=== PATIENT | female | born 1945 | race Caucasian/White ===

== ENCOUNTER 2018-08-28 07:07 | Day surgery (SDC) | payer MEDICARE ==
--- NOTE | 2018-08-20 16:01 | HP ---
CC: Dr. Yuniel Chavez of [facility] * ADMISSION HISTORY AND PHYSICAL: DATE OF ADMISSION: 08/28/18 ATTENDING SURGEON: Dr. Viviana Sher * (CHRISTOPHER Bansal, dictating). CHIEF COMPLAINT: Left breast nodule. HISTORY OF PRESENT ILLNESS: This is a 73-year-old female who underwent prior left breast biopsy in December 2016 which was apparently benign on pathology. A biopsy clip was left in place. She underwent her routine annual screening mammography on 06/19/18 which noted the nodule in the upper medial quadrant of the left breast measuring up to 1.2 cm. This was in the region of the prior biopsy and subsequent ultrasound done on 07/06/18 confirmed the presence of a hypoechoic nodule at the 10 o'clock position of left breast 4 cm from the nipple with prior biopsy clip present. This measured 1.3 x 0.8 x 1.2 cm ( increased from 0.8 x 0.8 x 1 cm in December 2016). The patient denies any changes to either breast including skin or nipple changes, lumps or nipple discharge. She was seen in our office by Dr. Sher on 07/09/18 at which time exam showed no skin or nipple changes. No discrete masses in the right breast. In the left breast there was some noddy tissue in the upper inner quadrant but no discrete lump. There was no cervical, supraclavicular, or axillary lymphadenopathy by palpation. The patient underwent ultrasound guided core biopsy on 07/23/18, pathology showing hypercellular stroma with no malignant cells. The patient's family history is significant for a paternal aunt who had breast cancer in her 50s and a paternal cousin diagnosed in her 30s. There is no known family history of ovarian cancer. Dr. Sher has discussed with her the indications for surgery, the risks, benefits, and alternatives and she would like to proceed as recommended with excision of left breast nodule ( following needle localization). PAST MEDICAL HISTORY: No significant active or past medical problems. She does have a history of anxiety and depression as well as cervical cancer treated by conization approximately 25 years ago with normal Pap smears subsequently. PAST SURGICAL HISTORY: Nothing in addition to above. CURRENT MEDICATIONS: 1. She takes her calcium magnesium supplement most of the days. 2. PreserVision AREDS 2 tablets once daily. 3. Currently uses an eye drop (Edith) for dry eyes. DRUG ALLERGIES: FENTANYL (vomiting and shaking). FAMILY HISTORY: As noted above otherwise negative for anesthesia problems, bleeding or clotting disorders. SOCIAL HISTORY: The patient is single, lives alone. She works at the [employer]. She is a nonsmoker. She drinks less than 1 drink per day average. She denies any other recreational drug use. REVIEW OF SYSTEMS: General: No other recent constitutional symptoms or acute illnesses. HEENT: She has some periodontal disease for which she is seeing Dr. Valle. Cardiovascular: She had recently had some chest pressure or palpations that she attributed to stress or caffeine. These have responded to reduced caffeine intake. Respiratory: No shortness of breath or chronic cough. GI: No problems reported. Last colonoscopy was approximately 3 to 5 years ago and reportedly normal. She is unsure about followup recommendations. She has had no concerning interval symptoms. : No problems reported. 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 Endocrine: No diabetes or thyroid dysfunction. PHYSICAL EXAMINATION GENERAL: A well-nourished, well-developed obese female, in no acute distress. She appears younger than her stated age of 73. VITAL SIGNS: Height 62 inches, weight 179 pounds, temperature 98.2, blood pressure 132/74, pulse 78, respirations 18. HEENT: Pupils are equal, round, reactive. EOMs intact. No conjunctival pallor. Oropharynx: Teeth in good repair. No intraoral lesions. NECK: No lymphadenopathy, thyromegaly, or masses. LUNGS: Clear to auscultation. No rales or wheezes. BREAST: Not reexamined today. See above. HEART: Regular rate and rhythm. No murmur noted. ABDOMEN: Soft, nontender to palpation. No palpable masses or organomegaly. GENITALIA: Not done. RECTAL: Not done. BACK: No spinous process or CVA tenderness. EXTREMITIES: No edema. NEUROLOGICAL: Grossly intact. SKIN: Warm and dry. No suspicious rashes or lesions. IMPRESSION: Left breast nodule. PLAN: Excision left breast nodule (following needle localization). CHRISTOPHER BANSAL [id number]/[facility] #: [id number] [facility]PITALMeek
[~2018-08-28 07:07] MED LIST: Buffered Lidocaine 1% SYRIN* 1 ML/SYRINGE INTRADERM ONE; Dexamethasone IV* 4 MG/ML 1 ML (4 MG) IV SLOW PU ONE; Famotidine TAB* 20 MG PO ONE; Lactated Ringers 1000 ML Bag* 1,000 ML IV SCH
[2018-08-28] MEDS ORDERED: Dexamethasone IV* 4 MG/ML 1 ML (4 MG) ONE (07:43)
[2018-08-28] MEDS ORDERED: Lidocaine 2.5%/Prilocain 2.5%* 5 GM TUBE ONE (07:43)
[2018-08-28] MEDS ORDERED: Buffered Lidocaine 1% SYRIN* 1 ML/SYRINGE INTRADERM ONE (07:43)
[2018-08-28] MEDS ORDERED: ceFAZolin 2 GM in NS PREMIX(*) 2 GM/100 ML BAG IVPB ONE (07:43)
[2018-08-28] MEDS ORDERED: Famotidine TAB* 20 MG ONE (07:43)
[2018-08-28] MEDS ORDERED: Lidocaine 1% INJ* 10 MG/ML 30 ML SDV ONE (11:01)
[2018-08-28] MEDS ORDERED: Bupivacaine 0.5%* 50 ML VIAL ONE (11:01)
[2018-08-28] MEDS ORDERED: Bupivacaine 0.5% W/EPI SDV* 30 ML VIAL ONE (11:01)
[2018-08-28] MEDS ORDERED: fentaNYL* 50 MCG/ML 2 ML VIAL (100 MCG VIAL) ONE (11:26)
[2018-08-28] MEDS ORDERED: Propofol* 500 MG/50 ML BTL ONE (11:27)
[2018-08-28] MEDS ORDERED: Midazolam* 1 MG/ML 2 ML VIAL (2 MG) ONE (11:27)
[2018-08-28] MEDS ORDERED: oxyCODONE/Acetamin 5/325 MG* TAB PO PRN (12:46)
[2018-08-28] MEDS ORDERED: Ibuprofen TAB* 600 MG PO PRN (12:46)
[2018-08-28] MEDS ORDERED: Acetaminophen TAB* 325 MG PO PRN (12:46)
[2018-08-28] MEDS ORDERED: fentaNYL* 50 MCG/ML 2 ML VIAL (100 MCG VIAL) IV PRN (12:46)
[2018-08-28] MEDS ORDERED: DiMENhydriNATE IV* 50 MG/ML VIAL IV PUSH PRN (12:46)
[2018-08-28] MEDS ORDERED: Naloxone* 0.4 MG/ML 1 ML VIAL IV PRN (12:46)
[2018-08-28] MEDS ORDERED: Ondansetron INJ* 2 MG/ML VIAL IV PRN (12:46)
--- NOTE | 2018-08-28 13:14 | BRIEFOPN ---
Brief Operative Note - Surgery Procedures: 08/28/18 Op Note Pre-op dx: Left breast mammographic abnormality Post-op dx: same Procedure: needle localization excision of left breast mammographic abnormality. Surgeon: Christos Asst: none Anesth: local-MAC EBL: 10 cc Complications: none SCDs on during surgery Abx: given pre-op Pt. tolerated procedure well and was transferred to in a stable condition. CLFoster
[2018-08-28] MEDS ORDERED: HYDROcodone/ACETAMIN 5-325 MG* 1 TAB PO PRN ×2 (13:15)
--- NOTE | 2018-08-28 13:44 | OP ---
CC: [facility]; Dr. Yuniel Chavez OPERATIVE REPORT: DATE OF OPERATION: 08/28/18 DATE OF : 41 SURGEON: Viviana Sher MD. PUBLICATIONS PRODUCTION SUPERVISOR: There was no medical assistant instructor for this case. PRE-OP DIAGNOSIS: Left breast mammographic abnormality. POST-OP DIAGNOSIS: Left breast mammographic abnormality. OPERATIVE PROCEDURE: Needle localization excision of left breast mammographic abnormality. INDICATIONS: Ms. Vasquez is a 73-year-old woman has undergone a biopsy of an abnormality in the breast in the recent past and it was felt to be discordant, though benign. So plans were made for surgical intervention. DESCRIPTION OF PROCEDURE: On the morning of surgery, she underwent needle localization without diffi culty. She was then brought to the operating room, placed on the OR table in supine position and giv en IV sedation. The left breast was prepped and draped in the usual sterile fashion taking care not to dislodge the localizing wire. After infiltrating with local anesthetic, a curvilinear incision en compassing the wire and the previous biopsy site was made. Subcutaneous tissue was then divided with electrocautery to excise the mass of tissue from around the wire. The specimen was marked in the us ual fashion and handed off. Hemostasis was assured with electrocautery and once this appeared adequa te, the wound was irrigated with saline copiously. Clips were placed in the cavity to archana its confi alonzo and then additional local was instilled into the wound. Closure was accomplished with 3-0 Vicryl in the subcutaneous layer and the skin was closed with 4-0 Prolene in a subcuticular fashion. Steri -Strips and a dry sterile dressing were applied. All sponge and instrument counts were correct. The report came back from Radiology that the specimen contains the abnormality and so the procedure was concluded. The patient tolerated the procedure well and was transferred to Recovery in a stable [facility]. [id number]/[facility] #: [id number]
[2018-08-28 15:20] VITALS: BP 155/91
== END 2018-08-28 14:30 | disposition home or self-care (01) ==
LOC: OR 07:07
PROVIDERS: ATTEND Surgery
DX: D24.2 Benign neoplasm of left breast (principal); F41.9 Anxiety disorder, unspecified; F32.9 Major depressive disorder, single episode, unspecified; E11.9 Type 2 diabetes mellitus without complications; I10 Essential (primary) hypertension; Z85.41 Personal history of malignant neoplasm of cervix uteri
CPT/HCPCS: 77061; 88307; A9270-GY; G0279; J0690; J1100; J2250; J2704; J3010; J3490

== ENCOUNTER 2021-01-29 13:35 | Inpatient (IN) ==
[2021-01-29] MEDS ORDERED: Ondansetron 4 mg VIAL 2 MG/ML 2 ml VIAL IV ONE ×2 (14:29→18:13)
[2021-01-29] MEDS ORDERED: HYDROcodone/ACETAMIN 5/325 mg TAB PO ONE (15:21)
[2021-01-29] MEDS ORDERED: HYDROmorphone 0.5 MG/0.5 ML SYRINGE IV ONE (17:48)
[2021-01-29] MEDS ORDERED: HYDROmorphone 1 MG/1 ML SYRINGE IV ONE (17:49)
[2021-01-29] MEDS ORDERED: ceFAZolin 2 GM in NS PREMIX 2 GM/100 ML BAG IVPB ONE (19:15)
[2021-01-29] MEDS ORDERED: Tetan/Diph/Pertus SYR(Tdap) 0.5 ML SYR(BOOSTRIX) use SYR contains LATEX IM ONE (19:15)
[2021-01-29 19:37] LABS: ABS Lymphocytes 1.4 10^3/ul (1.0-4.8); ABS Monocytes 0.8 10^3/ul (0-0.8); ABS Neutrophils 12.5 10^3/ul (1.5-7.7); Eosinophil % 0.1 %; Hematocrit 41 % (35-47); Hemoglobin 13.7 g/dL (12.0-16.0); Lymphocyte % 9.2 %; Mean Corpuscular HGB Conc 34 g/dL (31-36); Mean Corpuscular Hemoglobin 31 pg (27-31); Mean Corpuscular Volume 91 fL (80-97); Mean Platelet Volume 9.4 fL (7.4-10.4); Platelet Count 260 10^3/uL (150-450); Red Blood Count 4.46 10^6 /uL (3.70-4.87); Red Cell Distribution Width 13 % (10-15); White Blood Count 14.7 10^3/uL (3.5-10.8)
[2021-01-29 19:38] LABS: Activated Partial Thrombo Time 27.4 seconds (26.0-38.0); INR 1.12 (0.86-1.15)
[2021-01-29 19:42] LABS: Rapid COVID-19 Molecular Undetected (Undetected)
[2021-01-29 19:43] LABS: Albumin/Globulin Ratio 1.5 (1-3); Calcium 8.9 mg/dL (8.6-10.3); Globulin 2.7 g/dL (2-4); Total Bilirubin 0.4 mg/dL (0.2-1.0); Total Protein 6.7 g/dL (6.4-8.9)
[2021-01-29 20:59] LABS: Rapid COVID-19 Molecular Undetected (Undetected)
[2021-01-29] MEDS ORDERED: Ondansetron 4 mg VIAL 2 MG/ML 2 ml VIAL IV PRN (21:06)
[2021-01-29] MEDS ORDERED: NS 0.9% 1000 ml BAG 1,000 ML IV SCH (21:15)
[2021-01-29] MEDS ORDERED: ROPIVACAINE 5 MG/ML 30 ML BTL (0.5%) ONE (22:35)
[2021-01-29] MEDS ORDERED: Lidocaine 1% MPF 5 ML VIAL ONE (22:35)
[2021-01-29] MEDS ORDERED: Vancomycin 1,000 MG VIAL ONE (22:49)
[2021-01-29] MEDS ORDERED: fentaNYL 100 mcg/2 ml 50 MCG/ML VIAL ONE (22:50)
[2021-01-29] MEDS ORDERED: Rocuronium 50 mg VIAL 10 mg/ml 5 ml VIAL (50 mg) ONE ×2 (22:50→22:51)
[2021-01-29] MEDS ORDERED: Midazolam 2 mg/2 ml VIAL 1 mg/ml 2 ml VIAL (2 mg) ONE (22:51)
[2021-01-29] MEDS ORDERED: Lidocaine 2% PF 5 ML VIAL ONE (22:52)
[2021-01-29] MEDS ORDERED: Dexamethasone IV 4 MG/ML VIAL 1 ml VIAL ONE (22:52)
[2021-01-29] MEDS ORDERED: Propofol 10 MG/ML 20 ML BTL ONE (22:52)
[2021-01-30] MEDS ORDERED: Phenylephrine IV 10 MG/ML 1 ml VIAL ONE (00:16)
[2021-01-30] MEDS ORDERED: ceFAZolin VIAL VIAL ONE (00:25)
[2021-01-30] MEDS ORDERED: Glycopyrrolate IV 0.2 MG/ML 1 ML VIAL ONE (01:21)
[2021-01-30] MEDS ORDERED: HYDROmorphone 1 MG/1 ML SYRINGE IV PRN (02:15)
[2021-01-30] MEDS ORDERED: Ondansetron 4 mg VIAL 2 MG/ML 2 ml VIAL IV PRN (02:15)
[2021-01-30] MEDS ORDERED: DiMENhydriNATE IV 50 mg/ml 1 ml VIAL IV PUSH PRN (02:15)
[2021-01-30] MEDS ORDERED: Acetaminophen IV 1 GM/100ML 100 ML IV PRN (02:15)
[2021-01-30] MEDS ORDERED: diPHENhydraMINE IV 50 MG/ML 1 ml VIAL (BENADRYL) IV PRN (02:15)
[2021-01-30] MEDS ORDERED: HYDROcodone/ACETAMIN 5/325 mg TAB PO PRN (02:15)
[2021-01-30] MEDS ORDERED: Naloxone 0.4 mg VIAL 0.4 mg/ml 1 ml VIAL IV PRN (02:15)
[2021-01-30] MEDS ORDERED: Ondansetron 4 mg VIAL 2 MG/ML 2 ml VIAL ONE (02:27)
[2021-01-30] MEDS ORDERED: ceFAZolin VIAL 2 GM in NS 0.9% 100 ml BAG 100 ML IVPB SCH (04:00)
[2021-01-30] MEDS: ceFAZolin 2 GM in NS PREMIX 2 GM/100 ML BAG IVPB SCH ×3 (04:50→20:17)
[2021-01-30 05:14] LABS: ABS Lymphocytes 0.5 10^3/ul (1.0-4.8); ABS Monocytes 0.6 10^3/ul (0-0.8); ABS Neutrophils 10.1 10^3/ul (1.5-7.7); Hematocrit 35 % (35-47); Hemoglobin 11.8 g/dL (12.0-16.0); Lymphocyte % 4.7 %; Mean Corpuscular HGB Conc 34 g/dL (31-36); Mean Corpuscular Hemoglobin 31 pg (27-31); Mean Corpuscular Volume 91 fL (80-97); Mean Platelet Volume 8.4 fL (7.4-10.4); Platelet Count 197 10^3/uL (150-450); Red Blood Count 3.81 10^6 /uL (3.70-4.87); Red Cell Distribution Width 13 % (10-15); White Blood Count 11.2 10^3/uL (3.5-10.8)
[2021-01-30 05:39] LABS: Calcium 8.5 mg/dL (8.6-10.3); Potassium 4.2 mmol/L (3.5-5.0)
[2021-01-30] MEDS ORDERED: Albuterol HFA INHALER 8 gm MDI INH PRN (06:06)
[2021-01-30] MEDS ORDERED: Dextran 70/Hypromellose Tears Eye Drops 15 ml BTL (for Artificials Tears) BOTH EYES PRN (06:08)
[2021-01-30 07:07] LABS: INR 1.18 (0.86-1.15)
[2021-01-30] MEDS: Polyethylene Glycol 3350 17 GM PACKET PO SCH (09:03)
[2021-01-30] MEDS: Magnesium Hydroxide LIQ 30 ML UDC PO SCH ×2 (09:03→21:43)
[2021-01-30] MEDS: NF: Multivitamins/Mins AREDS2 (NF) CAP PO SCH ×2 (09:04→22:37)
[2021-01-30] MEDS: Enoxaparin 40 MG/0.4 ML SYR SUBCUT SCH (12:22)
[2021-01-30] MEDS: HYDROcodone/ACETAMIN 5/325 mg TAB PO PRN ×2 (14:09→20:24)
[2021-01-30] MEDS: Morphine 2 MG/ML SYRINGE IV PRN (16:52)
[2021-01-31] MEDS: ceFAZolin 2 GM in NS PREMIX 2 GM/100 ML BAG IVPB SCH ×2 (03:54→11:44)
[2021-01-31] MEDS: Morphine 2 MG/ML SYRINGE IV PRN (03:55)
[2021-01-31 06:24] LABS: ABS Monocytes 0.9 10^3/ul (0-0.8); ABS Neutrophils 5.9 10^3/ul (1.5-7.7); Eosinophil % 0.2 %; Hematocrit 28 % (35-47); Hemoglobin 9.8 g/dL (12.0-16.0); Lymphocyte % 12.7 %; Mean Corpuscular HGB Conc 35 g/dL (31-36); Mean Corpuscular Hemoglobin 32 pg (27-31); Mean Corpuscular Volume 92 fL (80-97); Mean Platelet Volume 8.9 fL (7.4-10.4); Platelet Count 152 10^3/uL (150-450); Red Blood Count 3.08 10^6 /uL (3.70-4.87); Red Cell Distribution Width 14 % (10-15); White Blood Count 7.8 10^3/uL (3.5-10.8)
[2021-01-31] MEDS: Polyethylene Glycol 3350 17 GM PACKET PO SCH (08:41)
[2021-01-31] MEDS: Magnesium Hydroxide LIQ 30 ML UDC PO SCH (08:41)
[2021-01-31] MEDS: NF: Multivitamins/Mins AREDS2 (NF) CAP PO SCH (08:42)
[2021-01-31] MEDS: Enoxaparin 40 MG/0.4 ML SYR SUBCUT SCH (11:45)
[2021-01-31 12:14] VITALS: BP 123/73
== END 2021-01-31 14:30 | DRG 494 ==
LOC: ED 13:35 → OR 21:25 → SUATTDRO 22:42 → SSU 22:42
PROVIDERS: ADMIT Student in an Organized Health Care Education/Training Program; ATTEND Internal Medicine

== ENCOUNTER 2021-01-31 13:48 | Inpatient (IN) ==
[2021-01-31] MEDS ORDERED: Senna TAB 8.6 mg TAB PO PRN (16:11)
[2021-01-31] MEDS ORDERED: Polyethylene Glycol 3350 17 GM PACKET PO PRN (16:17)
[2021-01-31] MEDS ORDERED: Ondansetron ODT 4 mg TAB 4 MG TAB PO PRN (18:13)
[2021-01-31] MEDS: ceFAZolin 2 GM PREMIX 2 GM/50 ML BAG IVPB SCH (20:07)
[2021-01-31] MEDS ORDERED: Multivitamins/Mins AREDS2 (NF) CAP PO SCH (21:00)
[2021-01-31] MEDS: PTO: Multivitamins/Mins AREDS2 (NF) CAP PO SCH (22:54)
[2021-02-01] MEDS: ceFAZolin 2 GM PREMIX 2 GM/50 ML BAG IVPB SCH ×3 (04:14→19:47)
[2021-02-01] MEDS: PTO: Multivitamins/Mins AREDS2 (NF) CAP PO SCH ×2 (08:13→20:40)
[2021-02-01] MEDS: Enoxaparin 40 MG/0.4 ML SYR SUBCUT SCH (13:28)
[2021-02-02] MEDS: ceFAZolin 2 GM PREMIX 2 GM/50 ML BAG IVPB SCH ×3 (04:05→21:28)
[2021-02-02 06:42] LABS: ABS Eosinophils 0.1 10^3/ul (0-0.6); ABS Lymphocytes 1.3 10^3/ul (1.0-4.8); ABS Monocytes 0.5 10^3/ul (0-0.8); ABS Neutrophils 3.5 10^3/ul (1.5-7.7); Eosinophil % 2.3 %; Hematocrit 26 % (35-47); Hemoglobin 8.9 g/dL (12.0-16.0); Lymphocyte % 23.3 %; Mean Corpuscular HGB Conc 35 g/dL (31-36); Mean Corpuscular Hemoglobin 32 pg (27-31); Mean Corpuscular Volume 92 fL (80-97); Mean Platelet Volume 8.5 fL (7.4-10.4); Platelet Count 157 10^3/uL (150-450); Red Blood Count 2.78 10^6 /uL (3.70-4.87); Red Cell Distribution Width 13 % (10-15); White Blood Count 5.4 10^3/uL (3.5-10.8)
[2021-02-02 06:59] LABS: Albumin/Globulin Ratio 1.2 (1-3); Calcium 8.3 mg/dL (8.6-10.3); Globulin 2.5 g/dL (2-4); Potassium 3.9 mmol/L (3.5-5.0); Total Bilirubin 0.4 mg/dL (0.2-1.0); Total Protein 5.5 g/dL (6.4-8.9); eGFR CKD-EPI 95.2 (>60)
[2021-02-02] MEDS: PTO: Multivitamins/Mins AREDS2 (NF) CAP PO SCH ×2 (09:57→20:39)
[2021-02-02] MEDS: Enoxaparin 40 MG/0.4 ML SYR SUBCUT SCH (12:03)
[2021-02-03] MEDS: PTO: Multivitamins/Mins AREDS2 (NF) CAP PO SCH ×2 (09:10→21:01)
[2021-02-03] MEDS: Enoxaparin 40 MG/0.4 ML SYR SUBCUT SCH (12:25)
[2021-02-04] MEDS: PTO: Multivitamins/Mins AREDS2 (NF) CAP PO SCH ×2 (08:32→21:12)
[2021-02-04] MEDS: Enoxaparin 40 MG/0.4 ML SYR SUBCUT SCH (12:54)
[2021-02-05] MEDS: PTO: Multivitamins/Mins AREDS2 (NF) CAP PO SCH ×2 (09:16→19:49)
[2021-02-05] MEDS: Enoxaparin 40 MG/0.4 ML SYR SUBCUT SCH (11:50)
[2021-02-06] MEDS: PTO: Multivitamins/Mins AREDS2 (NF) CAP PO SCH ×2 (09:29→20:25)
[2021-02-06] MEDS: Enoxaparin 40 MG/0.4 ML SYR SUBCUT SCH (13:42)
[2021-02-07 05:42] VITALS: BP 148/82
[2021-02-07] MEDS: PTO: Multivitamins/Mins AREDS2 (NF) CAP PO SCH (08:36)
== END 2021-02-07 12:54 | disposition home or self-care (01) | DRG 563 ==
LOC: PMRU 15:28
PROVIDERS: ADMIT Physical Medicine & Rehabilitation; ATTEND Physical Medicine & Rehabilitation